=== PATIENT | male | born 1950 | race Caucasian/White ===

== ENCOUNTER 2017-08-19 09:59 | Observation (INO) ==
--- NOTE | 2017-08-19 10:22 | PROVIDER DOCUMENTATION ---
HPI-Psychological Disorder - General Chief Complaint: Suicide Attempt Stated Complaint: OVERDOSE Time Seen by Provider: 08/19/17 10:00 Source: patient Allergies/Adverse Reactions: Patient Allergies Allergy/AdvReac Type Severity Reaction Status Date / Time codeine [Codeine] AdvReac Mild "it makes Verified 05/05/17 13:56 me sleepy" Home Medications: Home Medication List Medication Instructions Recorded Confirmed Last Taken Type Clopidogrel [Plavix] 75 mg PO DAILY 07/23/14 08/19/17 05/04/17 History Omeprazole [Prilosec] 20 mg PO DAILY 07/23/14 05/05/17 05/04/17 History Aspirin 81 mg PO DAILY 12/30/14 05/05/17 05/04/17 History Hydrocodone/Acetaminophen [[place] 1 tab PO Q4-6H PRN PRN 12/30/14 05/05/17 History 7.5-325 Tablet] Nitroglycerin [Nitrostat] 0.6 mg SL PRN PRN 08/28/15 05/05/17 05/04/17 History Atorvastatin Calcium 80 mg PO DAILY 03/20/17 08/19/17 05/04/17 History Blood Sugar Diagnostic [Test 1 each MC BID 03/20/17 05/05/17 05/04/17 History Strips] Ergocalciferol (Vitamin D2) 50,000 unit PO DAILY 03/20/17 05/05/17 05/04/17 History [Vitamin D2] Glipizide 5 mg PO DAILY 03/20/17 08/19/17 05/04/17 History Meloxicam [Mobic] 15 mg PO DAILY 03/20/17 05/05/17 05/04/17 History Tamsulosin [Flomax] 1 cap PO DAILY 03/20/17 08/19/17 05/04/17 History Gabapentin 600 mg PO TID PRN PRN 08/19/17 08/19/17 08/19/17 History Trazodone [Desyrel] 50 mg PO QHS 08/19/17 08/19/17 Unknown History - History of Present Illness-Psych Nature of Presenting Problem: This pt presents today c complaints of suicidal attempt by overdose. Pt reports that he and his fought over money all night last night and told him that she was leaving this morning. He states that he just wants to go be c his parents (who are ) and took an unknown amount of Neurontin this morning. EMS reports that the prescription was filled in June but pt states he has not been taking them consistently and had "a lot left." Pt is currently laying in bed in no distress. No other issues or complaints. Onset/Duration: reports: this morning Timing: reports: still present Severity: reports: severe Situational problems related to:: reports: spouse Psychiatric Complaints: reports: depressed, frustrated, suicidal ideation Substance Use: reports: denies Previous psych related hospitalizations?: No Patient arrived by:: EMS called by spouse/family Similar Symptoms Previously?: No Recently seen or treated by another doctor?: No Review of Systems - Adult - REVIEW OF SYSTEMS - ADULT Constitutional: reports: no symptoms reported. denies: chills, fever Eyes: reports: no symptoms reported. denies: discharge, dry eyes Ears, Nose, Mouth & Throat: reports: no symptoms reported. denies: ear discharge, ear pain Cardiovascular: reports: no symptoms reported. denies: chest pain, edema Respiratory: reports: no symptoms reported. denies: chronic cough, cough Gastrointestinal: reports: no symptoms reported. denies: abdominal pain, hematemesis Genitourinary: reports: no symptoms reported. denies: dysuria, discharge Musculoskeletal: reports: no symptoms reported. denies: bone pain, back pain Integumentary: reports: no symptoms reported. denies: hives, hair loss Neurological: reports: no symptoms reported. denies: ataxia, dizziness/vertigo Psychiatric: reports: suicidal thoughts. denies: insomnia, panic attacks Endocrine: reports: no symptoms reported Hematologic/Lymphatic: reports: no symptoms reported Allergic/Immunologic: reports: no symptoms reported All Other Systems: Reviewed and Negative Past History - Adult - PAST MEDICAL HISTORY-ADULT Review of Records: reports: Old Records Reviewed, Nursing Assessment Review, Medications Reviewed, Social history reviewed & non-contributory. Major Childhood Illnesses: reports: denies history Cardiovascular: reports: CAD, HTN Respiratory: reports: denies history Gastrointestinal: reports: GERD Obstetrical/Gynecological: reports: denies history Genitourinary: reports: denies history Musculoskeletal: reports: denies history Neurological: reports: dementia, other (learning disability) Endocrine/Immune: reports: Diabetes Other Conditions: reports: denies history - PRIOR SURGERIES/PROCEDURES Surgical/Procedure History: reports: appendectomy, cholecystectomy, cardiac stent, tonsillectomy - IMMUNIZATION STATUS Childhood Immunizations: See Nurse Assessment Flu Vaccine: See Nurse Assessment - FAMILY HISTORY Family History: reviewed, not pertinent Physical Exam-Psych Focus - Physical Exam-Psych Initial Vital Signs Reviewed: Yes Appearance: appropriate appearance, appropriate insight, neat, no apparent distress, no memory impairment, alert. 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 negative: responds to pain, agitated, anxious, disoriented x 3, flat, no response to pain, withdraws to pain Behavior/Eye Contact/Speech: cooperative, good eye contact, normal speech. negative: avoids eye contact, refused to answer, threatening eye contact Thoughts/Hallucinations: normal thought pattern, no apparent hallucination. negative: auditory hallucinations, delusions, flight of ideas HENMT: normocephalic/atraumatic, moist mucous membranes, normal ENT inspection Neck: non-tender, full range of motion, supple, normal inspection Respiratory: chest non-tender, lungs clear, normal breath sounds Cardiovascular: normal peripheral pulses, regular rate, rhythm Abdominal Exam: normal bowel sounds, non tender, soft Back Exam: normal inspection, no CVA tenderness, no vertebral tenderness Extremity: normal range of motion, non-tender, normal gait, normal inspection Integumentary: normal color, normal turgor, warm/dry Progress - PLAN OF CARE/RESULTS Progress/Plan/Lab Results: Vital Signs - 8 hr 08/19/17 10:11 08/19/17 13:10 Temperature 97 F L Pulse Rate 62 57 L Respiratory Rate 22 18 Blood Pressure 194/106 127/82 O2 Sat by Pulse Oximetry 97 96 Laboratory Results - last 24 hr 08/19/17 08/19/17 08/19/17 10:28 10:28 10:28 WBC 7.10 RBC 5.36 Hgb 16.3 Hct 46.7 MCV 87.1 MCH 30.4 MCHC 34.9 RDW Std Deviation 13.4 Plt Count 179 MPV 10.9 H Immature Gran % (Auto) 0.3 Neut % (Auto) 60.8 Lymph % (Auto) 25.1 [place]he % (Auto) 10.1 H Eos % (Auto) 3.4 Baso % (Auto) 0.3 Immature Gran # (Auto) 0.02 Neut # (Auto) 4.32 Lymph # (Auto) 1.78 [place]he # (Auto) 0.72 H Eos # (Auto) 0.24 Baso # (Auto) 0.02 Sodium 139 Potassium 4.2 Chloride 104 Carbon Dioxide 21 L Anion Gap 14 BUN 16 Creatinine 1.2 Estimated GFR/1.73 m2 > 60 BUN/Creatinine Ratio 13 Glucose 123 H POC Glucose Calculated Osmolality 280 Calcium 9.4 Total Bilirubin 0.93 AST 33 ALT 41 Alkaline Phosphatase 151 H Total Protein 6.9 Albumin 4.0 Globulin 2.9 Albumin/Globulin Ratio 1.4 Vitamin B12 TSH Free T4 Urine Source Urine Color Urine Turbidity Urine pH Ur Specific Golden Urine Protein Ur Glucose (Stick) Ur Ketones (Stick) Urine Blood Urine Nitrite Urine Bilirubin Urobilinogen Dipstick Urine Leukocytes Urine WBC (Auto) Urine RBC (Auto) U Epithel Cells (Auto) Urine Bacteria (Auto) Salicylates < 3.00 L Urine Opiates Screen Ur Oxycodone Screen Ur Methadone, Qual Acetaminophen < 1.2 L Ur Barbiturates Screen Ur Phencyclidine Scrn Ur Amphetamines Screen U Benzodiazepines Scrn Urine Cocaine Screen U Cannabinoids Screen Plasma/Serum Ethyl Alc 08/19/17 08/19/17 08/19/17 10:28 10:38 11:31 WBC RBC Hgb Hct MCV MCH MCHC RDW Std Deviation Plt Count MPV Immature Gran % (Auto) Neut % (Auto) Lymph % (Auto) [place] % (Auto) Eos % (Auto) Baso % (Auto) Immature Gran # (Auto) Neut # (Auto) Lymph # (Auto) [place]he # (Auto) Eos # (Auto) Baso # (Auto) Sodium Potassium Chloride Carbon Dioxide Anion Gap BUN Creatinine Estimated GFR/1.73 m2 BUN/Creatinine Ratio Glucose POC Glucose 109 H Calculated Osmolality Calcium Total Bilirubin AST ALT Alkaline Phosphatase Total Protein Albumin Globulin Albumin/Globulin Ratio Vitamin B12 260 TSH 1.23 Free T4 1.10 Urine Source CLEAN CATCH Urine Color YELLOW Urine Turbidity CLEAR Urine pH 5.0 Ur Specific Golden 1.017 Urine Protein NEGATIVE Ur Glucose (Stick) NEGATIVE Ur Ketones (Stick) NEGATIVE Urine Blood NEGATIVE Urine Nitrite NEGATIVE Urine Bilirubin NEGATIVE Urobilinogen Dipstick NORMAL Urine Leukocytes NEGATIVE Urine WBC (Auto) <10 Urine RBC (Auto) <10 U Epithel Cells (Auto) <10 Urine Bacteria (Auto) NEGATIVE Salicylates Urine Opiates Screen Ur Oxycodone Screen Ur Methadone, Qual Acetaminophen Ur Barbiturates Screen Ur Phencyclidine Scrn Ur Amphetamines Screen U Benzodiazepines Scrn Urine Cocaine Screen U Cannabinoids Screen Plasma/Serum Ethyl Alc 08/19/17 11:31 WBC RBC Hgb Hct MCV MCH MCHC RDW Std Deviation Plt Count MPV Immature Gran % (Auto) Neut % (Auto) Lymph % (Auto) [place]he % (Auto) Eos % (Auto) Baso % (Auto) Immature Gran # (Auto) Neut # (Auto) Lymph # (Auto) [place]he # (Auto) Eos # (Auto) Baso # (Auto) Sodium Potassium Chloride Carbon Dioxide Anion Gap BUN Creatinine Estimated GFR/1.73 m2 BUN/Creatinine Ratio Glucose POC Glucose Calculated Osmolality Calcium Total Bilirubin AST ALT Alkaline Phosphatase Total Protein Albumin Globulin Albumin/Globulin Ratio Vitamin B12 TSH Free T4 Urine Source Urine Color Urine Turbidity Urine pH Ur Specific Golden Urine Protein Ur Glucose (Stick) Ur Ketones (Stick) Urine Blood Urine Nitrite Urine Bilirubin Urobilinogen Dipstick Urine Leukocytes Urine WBC (Auto) Urine RBC (Auto) U Epithel Cells (Auto) Urine Bacteria (Auto) Salicylates Urine Opiates Screen NONE DETECTED Ur Oxycodone Screen NONE DETECTED Ur Methadone, Qual NONE DETECTED Acetaminophen Ur Barbiturates Screen NONE DETECTED Ur Phencyclidine Scrn NONE DETECTED Ur Amphetamines Screen NONE DETECTED U Benzodiazepines Scrn NONE DETECTED Urine Cocaine Screen NONE DETECTED U Cannabinoids Screen NONE DETECTED Plasma/Serum Ethyl Alc Orders Category Date Time Status Cardiac Monitoring DIRECTED Care 08/19/17 10:00 Active Finger Stick Blood Sugar (ED) DIRECTED Care 08/19/17 10:00 Active Saline Loc DIRECTED Care 08/19/17 10:00 Active Regular Diet Diet 08/19/17 12:58 Active ACETAMINOPHEN [TDM] Stat Lab 08/19/17 10:28 Completed ALCOHOL BLOOD Stat Lab 08/19/17 10:28 Completed CBC WITH ELECTRONIC DIFF [HEME] Stat Lab 08/19/17 10:28 Completed COMPREHENSIVE METABOLIC PANEL [CHEM] Stat Lab 08/19/17 10:28 Completed FREE T4 Stat Lab 08/19/17 10:28 Completed SALICYLATES [TDM] Stat Lab 08/19/17 10:28 Completed TSH Stat Lab 08/19/17 10:28 Completed URINALYSIS W/POSS RFLX CULT-1 [URINALYSIS] Stat Lab 08/19/17 11:31 Completed URINE DRUG SCREEN Stat Lab 08/19/17 11:31 Completed VITAMIN B12 Stat Lab 08/19/17 10:28 Completed Pulse Oximetry Stat Oth 08/19/17 10:00 Active EKG [EKG] Stat Ther 08/19/17 10:00 Draft Discussed c poison control and they recommended lab work and monitoring for hypotension. Pt is stable and BP is actually elevated. Result Diagrams: 08/19/17 10:28 08/19/17 10:28 - PSYCHIATRIC Medically clear for psych eval and/or transfer to [facility].: Yes Psych patient progress: [facility] has screened pt. Dr. Martínez refuses to accept until pt has been monitored for 24 hours. Departure - Departure Date of Disposition Decision: 08/19/17 Time of Disposition Decision: 15:27 DIAGNOSIS: Suicidal overdose Qualifiers: Encounter type: initial encounter Qualified Code(s): T50.902A - Poisoning by unspecified drugs, medicaments and biological substances, intentional self-harm , initial encounter Disposition: ADMITTED INPATIENT 09 Certified Medical Emergency: Emergent Condition: Stable Referrals and Follow-Ups: Joseph Claudio MD [Primary Care Provider] - - Critical Care Note This patient required my direct & personal management of CC.: No Attestation - Physician/ DEBBIE Attestation Patient care was provided by Advanced Practice Provider:: Yes Advanced Practice Provider:: Oscar Georges Advanced Practice Provider documentation review:: The Mid-level provider documentation, treatment plan and medical decision making was reviewed by the physician who agrees with all treatment and medical decision making by the [facility]. The physician spent face to face time with patient:: Yes Advanced Practice Provider documentation review:: Supervising physician onsite and consulted in the evaluation and care of this patient. The physician did have a face to face encounter with the patient.
[2017-08-19 10:40] LABS: MANUAL DIFF NEEDED? NO
[2017-08-19 10:48] LABS: BASO% 0.3 % (0.0-0.8); EOS# 0.24 X1000 (0.0-0.7); EOS% 3.4 % (0.0-10.0); HEMATOCRIT 46.7 % (42.0-52.0); HEMOGLOBIN 16.3 g/dL (14.0-18.0); IMM GRAN# 0.02 X1000 (0.0-0.04); IMM GRAN% 0.3 % (0.0-0.5); LYMPH# 1.78 X1000 (1.2-3.4); LYMPH% 25.1 % (20.5-51.1); MCH 30.4 PG (27-31); MCHC 34.9 g/dL (33-37); MCV 87.1 FL (81-99); MONO# 0.72 X1000 (0.11-0.59); MONO% 10.1 % (1.7-9.3); MPV 10.9 FL (7.4-10.4); NEUT% 60.8 % (42.2-75.2); PLT 179 X1000 (130-400); RBC 5.36 XMIL (4.7-6.1)
[2017-08-19 11:19] LABS: ACETAMINOPHEN < 1.2 ug/mL (10-30); ALKALINE PHOSPHATASE 151 U/L (32-122); BUN 16 mg/dL (8-22); CALCIUM 9.4 mg/dL (8.8-10.2); GOT 33 U/L (10-34); GPT 41 U/L (10-44); TCO2 21 mmol/L (25-35); TOTAL BILIRUBIN 0.93 mg/dL (0.20-1.00); TOTAL PROTEIN 6.9 g/dL (6.3-8.3)
[2017-08-19 11:25] LABS: CHLORIDE 104 mmol/L (98-107); POTASSIUM 4.2 mmol/L (3.5-5.1); SODIUM 139 mmol/L (136-145)
[2017-08-19 11:42] LABS: URINE CULTURE NEEDED? NO; URINE MICRO REVIEW NEEDED? NO; URINE SOURCE CLEAN CATCH
[2017-08-19 11:42] LABS: AGAP 14; COSMO 280
[2017-08-19 11:47] LABS: BILIRUBIN URINE NEGATIVE (NEGATIVE); BLOOD URINE NEGATIVE (NEGATIVE); COLOR YELLOW; GLUCOSE URINE NEGATIVE (NEGATIVE); LEUKOCYTES URINE NEGATIVE (NEGATIVE); NITRITE URINE NEGATIVE (NEGATIVE); PROTEIN URINE NEGATIVE (NEGATIVE); SP GRAVITY URINE 1.017; TURBIDITY URINE CLEAR (CLEAR); UR EPITHELIAL CELLS <10 /HPF (<10); URINE BACTERIA NEGATIVE /HPF; URINE RBC <10 /HPF (<10); URINE WBC <10 /HPF (<10); UROBILINOGEN URINE NORMAL (NORMAL)
[2017-08-19 12:01] LABS: UR AMPHETAMINES QUAL NONE DETECTED (NONE DETECT); UR BARBITUATES QUAL NONE DETECTED (NONE DETECT); UR BENZODIAZEPIN QUAL NONE DETECTED (NONE DETECT); UR CANNABINOIDS QUAL NONE DETECTED (NONE DETECT); UR COCAINE QUAL NONE DETECTED (NONE DETECT); UR METHADONE QUAL NONE DETECTED (NONE DETECT); UR OPIATES QUAL NONE DETECTED (NONE DETECT); UR OXYCODONE QUAL NONE DETECTED (NONE DETECT); UR PCP QUAL NONE DETECTED (NONE DETECT)
[2017-08-19 12:06] LABS: FREE T4 1.1 ng/dL (0.93-1.70)
--- NOTE | 2017-08-19 12:08 | EKG Report ---
Test Performed on : 08/19/2017 11:05:02 AM Test Reason : Suspected Overdose Blood Pressure : / mmHG Vent. Rate : 058 BPM Atrial Rate : 058 BPM P-R Int : 152 ms QRS Dur : 092 ms QT Int : 436 ms P-R-T Axes : 028 019 048 degrees QTc Int : 428 ms Sinus bradycardia. Otherwise normal ECG When compared with ECG of 20-MAR-2017 18:39, No significant change was found Unconfirmed Result
[2017-08-19] MEDS: NS 1,000 ML IV SCH (19:34)
[2017-08-19] MEDS: HUMALOG SUBQ SCH ×2 (19:37→20:49)
--- NOTE | 2017-08-19 19:59 | HISTORY AND PHYSICAL ---
PRIMARY CARE PHYSICIAN: Dr. Joseph Claudio. PRESENTING COMPLAINT: Suicidal attempt with injection of Neurontin. HISTORY OF PRESENTING COMPLAINT: The patient himself is not able to give me details of the incident. The daughter was at the bedside who gave me more, but she was actually not there at the time of the incident and she is also narrating from what she heard. Also I reviewed the patient's records from the ER and apparently he had an incident with the the last night and the locked him out and he was at the living room. According to him, he got so depressed he did not want to live anymore so he went in to where the medications are and took an unknown amount of Neurontin. This morning the sister found him altered at home. The was not there. The patient was subsequently brought to the emergency department where Poison Control was consulted and their recommendation was to observe the patient for 5 hours and discharge if stable. However, [facility] was consulted because of acute suicidal ideation and intent, but they refused to admit the patient. They recommended that the patient be observed medically for 24 hours before they would evaluate him. PAST MEDICAL HISTORY: 1. Coronary artery disease status post stent about 10 years ago. 2. Borderline diabetes mellitus. 3. Hypertension. 4. Multiple musculoskeletal pains status post multiple cervical spine surgeries. PAST SURGICAL HISTORY: Multiple spine surgeries. FAMILY HISTORY: Positive for diabetes. SOCIAL HISTORY: Patient was an ex smoker but stopped about 20 years ago. No alcohol. Lives with the who is about 86 years old for the past 7 years. According to him, the is deaf and he has to be screaming at the top of his voice all the time to be communicating with her. Denies any illicit drugs and no alcohol. The patient is disables because of lower back spinal disease. MEDICATIONS AT HOME: 1. Omeprazole 20 mg daily. 2. Clopidogrel 75 mg daily. 3. Aspirin 81 mg daily. 4. Glipizide 5 mg daily. 5. Atorvastatin 80 mg daily. 6. Meloxicam. 7. Tamsulosin 1 tablet daily. 8. Gabapentin 600, 3 times per day. PHYSICAL EXAM: VITAL SIGNS: Blood pressure is 132/84, pulse of 62, respirations 18, temperature is 97 degrees. GENERAL: Mr. Camarillo is a 67-year-old male. He is morbidly obese. BMI is 33.5. He is in bed. Did not seem to be in any remarkable distress. HEENT: Mucosa is slightly dry. Anicteric. Acyanotic. Head is normocephalic and atraumatic. NECK: Supple. There are multiple scars on the right aspect of the lower neck consistent with previous neck surgeries. CHEST: Good air entry bilateral. There are no crepitations, no rhonchi. There is no accessory muscle use. CARDIOVASCULAR: Regular rate and rhythm. There is no murmurs no rubs, no gallops. GASTROINTESTINAL: Abdomen is soft and nontender. Bowel sounds are present. There is no hepatosplenomegaly. : Unremarkable. FARMWORKERS: Patient is slightly lethargic, but is easily arousable. Follows some basic commands. Speech is slightly dysarthric, but patient moves all extremities without any difficulty. Motor is about 5/5 in all extremities. No sensory deficit. Reflexes are 2+ in all extremities. PSYCHIATRIC: Patient is easily tearful. LABORATORY DATA: WBC 7.10, hemoglobin is 16.3, platelet count of 179,000. Chemistry is also reviewed. Bicarb is 21, rest of chemistries are completely unremarkable. EKG shows normal sinus rhythm. Normal axis. No acute ST-segment abnormality and QT interval is normal. ASSESSMENT: 1. Altered mental status on presentation, secondary to medication prescription drug side effects. 2. Suicidal attempt with injection of unknown amount of Neurontin, not quite sure if patient might have taken any other additional drugs. 3. Diabetes mellitus, stable. 4. Obesity with possible sleep apnea. PLAN: In general, I think Mr. Camarillo is clinically stable. We are going to keep him in the ICU, continue with gentle baseline hydration to perfuse the kidney and try to flush the medication out of the system. Will do neuro checks every 4-6 hours. Reconsult [facility] tomorrow after the 24 hours observation is over so that we can transfer the patient to [facility]. cc: MD ROSIBEL Chan
[2017-08-20 04:37] LABS: HEMATOCRIT 45.9 % (42.0-52.0); HEMOGLOBIN 15.7 g/dL (14.0-18.0); MCH 30.3 PG (27-31); MCHC 34.2 g/dL (33-37); MCV 88.6 FL (81-99); MPV 11.2 FL (7.4-10.4); RBC 5.18 XMIL (4.7-6.1)
[2017-08-20 05:09] LABS: AGAP 11; BUN 17 mg/dL (8-22); CALCIUM 9.2 mg/dL (8.8-10.2); CHLORIDE 107 mmol/L (98-107); COSMO 287; POTASSIUM 4.2 mmol/L (3.5-5.1); SODIUM 143 mmol/L (136-145); TCO2 25 mmol/L (25-35)
[2017-08-20] MEDS: HUMALOG SUBQ SCH ×2 (06:04→11:31)
[2017-08-20] MEDS ORDERED: FOLIC ACID PO SCH (09:00)
[2017-08-20] MEDS ORDERED: LOVENOX SUBQ SCH (09:00)
[2017-08-20] MEDS: NS 1,000 ML IV SCH (09:04)
[2017-08-20] MEDS ORDERED: VITAMIN B-12 PO SCH (09:45)
[2017-08-20 11:34] VITALS: BP 165/102
--- NOTE | 2017-08-21 09:22 | DISCHARGE SUMMARY ---
ADMISSION DATE: 08/19/2017 DISCHARGE DATE: 08/20/2017 DISPOSITION: [facility] and inpatient psych unit. CONSULTATION DURING THIS ADMISSION: [facility] was consulted. INVASIVE PROCEDURES DONE DURING THIS ADMISSION: None. IMAGING STUDIES OF SIGNIFICANCE: None. Admission EKG was reviewed and it showed normal sinus rhythm with a rate of about 58 which has not changed. ADMISSION DIAGNOSES: 1. Altered mental status secondary to prescription drug side effects. 2. Suicidal attempt with injection of unknown amount of Neurontin. 3. Diabetes mellitus. 4. Obesity with possible sleep apnea. DISCHARGE DIAGNOSES: 1. Altered mental status secondary to global encephalopathy, improved. 2. Suicidal attempt with ingestion of Neurontin. Patient continues to expressed ideas and thoughts of suicidality. 3. Suspected severe major depression. 4. Diabetes mellitus, controlled. 5. Obesity with body mass index of 34.3. 6. Borderline vitamin B12 deficiency. 7. Folate deficiencies. DISCHARGE MEDICATIONS: 1. Omeprazole 20 mg daily. 2. Clopidogrel 75 mg daily. 3. Aspirin 81 mg daily. 4. Glipizide 5 mg daily. 5. Atorvastatin 80 mg daily. 6. Tamsulosin 1 tablets. 7. Trazodone 50 mg at bedtime. 8. Gabapentin. 9. Cyanocobalamin 1 g p.o. daily. 10. Folic acid 1 mg p.o. daily. PRESENTING COMPLAINT: Suicidal attempt with ingestion of Neurontin. HISTORY OF PRESENTING COMPLAINT: Mr. Camarillo is a 67-year-old male who presented to the emergency department because he had some issues with the at home and subsequently became so depressed that he ingested an unknown amount of Neurontin. Patient came in to the emergency department very altered and was not able to give history himself. Poison Control was consulted and their recommendation was to observe the patient for 5 hours and discharge. However [facility] was consulted and they wanted the patient to be observed for 24 hours to make sure he was medically stable for discharge. The patient was subsequently admitted to the ICU for close monitoring. HOSPITAL COURSE: Patient did pretty well during the hospital stay, was hydrated with IV fluids. B12 and folate were low, so he has been started on oral supplements. He will continue with his medications. This morning, he continues to be extremely suicidal. He thinks some the does not care about him and he just wants to go home and end his life. [facility] have been called. They have been notified about the patient's continued ideas of suicidality and the fact that medically, he is stable. Telemonitor has not shown any acute changes compatible with some any other arrhythmias or any ST-segment changes or anything of major concern. The patient is therefore medically stable and he is going to be transferred to [facility] to continue with his mental health management. TIME SPENT FOR DISCHARGE: Thirty-five minutes. cc: Juice Powell MD
--- NOTE | 2017-08-28 14:13 | ED EKG INTERP ---
This chart was entered by Eun Rucker Scribe, acting as scribe for Levi De La Paz MD. EKG Interpretation - EKG Time of EKG reading by physician:: 11:31 EKG Read and Signed by:: Levi De La Paz EKG Interpretation (*Must complete 3 of following elements*): Normal Rate: 58 Rhythm: sinus bradycardia [place]: normal QRS: normal IN Interval: normal ST Wave: normal Attestation - Physician/ DEBBIE Attestation Patient care was provided by Advanced Practice Provider:: Yes Advanced Practice Provider documentation review:: The Mid-level provider documentation, treatment plan and medical decision making was reviewed by the physician who agrees with all treatment and medical decision making by the MLP. The physician spent face to face time with patient:: No Advanced Practice Provider documentation review:: Supervising physician onsite and consulted in the evaluation and care of this patient. The physician did not have a face to face encounter with the patient. This chart was documented by the indicated scribe, (Eun Rucker Scribe) and accurately reflects the services I performed and decisions made by me, Levi De La Paz MD, as attested by the provider's signature.
== END 2017-08-20 16:25 ==
LOC: SUPCPDRO → ED 09:59 → SUATTDRO 16:48 → INTOOBSV 16:48 → ICU 16:48
PROVIDERS: ATTEND Internal Medicine

== ENCOUNTER 2019-04-15 16:32 | Inpatient (IN) ==
[2019-04-15 17:33] LABS: BASO# 0.01 X1000 (0.0-0.2); BASO% 0.1 % (0.0-0.8); EOS# 0.01 X1000 (0.0-0.7); EOS% 0.1 % (0.0-10.0); HEMATOCRIT 47.1 % (42.0-52.0); HEMOGLOBIN 16.4 g/dL (14.0-18.0); IMM GRAN# 0.04 X1000 (0.0-0.04); IMM GRAN% 0.5 % (0.0-0.5); LYMPH# 0.89 X1000 (1.2-3.4); LYMPH% 11.2 % (20.5-51.1); MCH 31.4 PG (27-31); MCHC 34.8 g/dL (33-37); MCV 90.2 FL (81-99); MONO# 0.73 X1000 (0.11-0.59); MONO% 9.1 % (1.7-9.3); MPV 11.5 FL (7.4-10.4); PLT 137 X1000 (130-400); RBC 5.22 XMIL (4.7-6.1); RDW 13.5 % (11.5-14.5); WBC 7.98 X1000 (4.8-10.8)
--- NOTE | 2019-04-15 17:33 | Diag Imaging Result Doc PS360 ---
CT HEAD W/O CONTRAST - 04/15/2019 INDICATION: stroke like COMPARISON: 09/09/2018 FINDINGS: The ventricles and sulci are normal in size and contour. No intracranial mass or hemorrhage. The skull is intact. The sinuses mastoids and middle ears are clear. IMPRESSION: Negative exam. This exam was performed using automated exposure control, adjustment of mA or kV according to patient size, and/or use of iterative reconstruction technique Electronically signed by Demetri Lee 04/15/2019 5:31 PM
--- NOTE | 2019-04-15 17:34 | Diag Imaging Result Doc PS360 ---
CHEST-PORTABLE - 04/15/2019 INDICATION: stroke like symptoms COMPARISON: 09/09/2018 FINDINGS: The lungs are normally expanded and clear. Heart size and mediastinal contours are normal. No pneumothorax or pleural effusion. IMPRESSION: Negative exam. Electronically signed by Demetri Lee 04/15/2019 5:31 PM
[2019-04-15 17:38] LABS: INR 0.98; PROTIME 13.8 Seconds (11.0-16.0)
[2019-04-15 17:39] LABS: PTT 26.9 Seconds (22.3-41.8)
[2019-04-15 17:50] LABS: ALB/GLOB RATIO 1.5; ALBUMIN 3.7 g/dL (3.5-5.0); CALCIUM 8.6 mg/dL (8.8-10.2); CREATININE 1.4 mg/dL (0.7-1.2); POTASSIUM 4.4 mmol/L (3.5-5.1); TOTAL BILIRUBIN 0.85 mg/dL (0.20-1.00); TOTAL PROTEIN 6.1 g/dL (6.3-8.3)
[2019-04-15 19:44] LABS: URINE SOURCE CATH
[2019-04-15 19:45] LABS: BILIRUBIN URINE NEGATIVE (NEGATIVE); BLOOD URINE NEGATIVE (NEGATIVE); COLOR YELLOW; GLUCOSE URINE NEGATIVE (NEGATIVE); KETONE URINE NEGATIVE (NEGATIVE); LEUKOCYTES URINE NEGATIVE (NEGATIVE); NITRITE URINE NEGATIVE (NEGATIVE); PROTEIN URINE NEGATIVE (NEGATIVE); TURBIDITY URINE CLEAR (CLEAR); UROBILINOGEN URINE NORMAL (NORMAL)
[2019-04-15 19:46] LABS: UR EPITHELIAL CELLS <10 /HPF (<10); URINE BACTERIA NEGATIVE /HPF; URINE RBC <10 /HPF (<10); URINE WBC <10 /HPF (<10)
--- NOTE | 2019-04-15 21:04 | PROVIDER DOCUMENTATION ---
This chart was entered by Hailey Tariq Scribe, acting as scribe for Satnam Robert MD. HPI-Neurological Disorder - General Chief Complaint: Stroke-Like Symptoms Stated Complaint: FALL Time Seen by Provider: 04/15/19 16:40 Source: patient, EMS Allergies/Adverse Reactions: Patient Allergies Allergy/AdvReac Type Severity Reaction Status Date / Time codeine [Codeine] AdvReac Mild "it makes Verified 04/11/18 04:52 me sleepy" Home Medications: Home Medication List Medication Instructions Recorded Confirmed Last Taken Type Omeprazole [Prilosec] 40 mg PO QHS 07/23/14 04/15/19 05/04/17 History Aspirin 81 mg PO QPM 12/30/14 04/15/19 05/04/17 History Atorvastatin Calcium 80 mg PO QPM 03/20/17 04/15/19 05/04/17 History Blood Sugar Diagnostic [Test 1 each MC BID 03/20/17 04/15/19 05/04/17 History Strips] Glipizide 5 mg PO QHS 03/20/17 04/15/19 05/04/17 History Tamsulosin [Flomax] 1 cap PO QHS 03/20/17 04/15/19 05/04/17 History Gabapentin [Neurontin] 600 mg PO TID PRN PRN #0 tablet 09/03/17 04/15/19 Unknown Rx Acetaminophen [Tylenol 8 Hour] 1 tab PO TID PRN 04/15/19 04/15/19 Unknown History Amlodipine Besylate [Norvasc] 2.5 mg PO QHS 04/15/19 04/15/19 Unknown History Fluticasone 50 Mcg Nasal [place] 2 sprays NS QHS 04/15/19 04/15/19 Unknown History [Flonase] - History of Present Illness-Neuro Nature of Presenting Problem: 69 yom presents to the ed via ems with c/o left sided weakness and frequent falls acute onset 2 days prior. pt sts weakness has worsened since onset and pt has fallen multiple times. the last fall was today at a neighbors home and neighbor called 911. pt denies headache Severity: reports: moderate Onset/Duration: reports: 2 days ago Timing: reports: still present Context: reports: falling Character of Altered Mental Status: reports: N/A Character of Deficits: reports: new weakness, decreased ability to walk New weakness or altered sensation location:: reports: MONSEE, YELITZA Cognitive Baseline: alert, oriented x3 Gait Baseline: walks without assistance Associated Symptoms: reports: decreased ability to walk or stand, weakness. denies: headache, chest pain, fever/chills, nausea, sleepy, vomiting Similar Symptoms Previously?: No Recently seen or treated by another doctor?: No Review of Systems - Adult - REVIEW OF SYSTEMS - ADULT Constitutional: reports: no symptoms reported Eyes: denies: blurred vision, double vision Ears, Nose, Mouth & Throat: reports: no symptoms reported Cardiovascular: denies: chest pain, palpitations, syncope Respiratory: denies: cough, shortness of breath, wheezing Gastrointestinal: reports: no symptoms reported Genitourinary: reports: no symptoms reported Musculoskeletal: reports: see HPI, muscle weakness. denies: back pain, neck pain Integumentary: reports: no symptoms reported Neurological: reports: see HPI, loss of balance. denies: ataxia, dizziness/vertigo, headache/migraines, seizure, slurred speech, syncope Psychiatric: reports: no symptoms reported Endocrine: reports: no symptoms reported Hematologic/Lymphatic: reports: no symptoms reported Allergic/Immunologic: reports: no symptoms reported All Other Systems: Reviewed and Negative Past History - Adult - PAST MEDICAL HISTORY-ADULT Review of Records: reports: Old Records Reviewed, Nursing Assessment Review, Medications Reviewed, Social history reviewed & non-contributory. Major Childhood Illnesses: reports: denies history Cardiovascular: reports: CAD, HTN Respiratory: reports: denies history Gastrointestinal: reports: GERD Obstetrical/Gynecological: reports: denies history Genitourinary: reports: denies history Musculoskeletal: reports: denies history Neurological: reports: dementia, other (learning disability) Psychiatric: reports: depression Endocrine/Immune: reports: Diabetes Other Conditions: reports: denies history - PRIOR SURGERIES/PROCEDURES Surgical/Procedure History: reports: appendectomy, cholecystectomy, cardiac stent, tonsillectomy, back/neck (lower back surgery) - IMMUNIZATION STATUS Childhood Immunizations: See Nurse Assessment Flu Vaccine: See Nurse Assessment - FAMILY HISTORY Family History: reviewed, not pertinent - SOCIAL HISTORY Smoking: quit greater than 1 year Substance Use: denies Alcohol Use Frequency: never Living Situation: family Physical Exam- Neurological - Physical Exam-Neuro General Appearance: alert, mild distress Eye Exam: bilateral eye: normal inspection HENMT: normocephalic/atraumatic, moist mucous membranes, normal ENT inspection Head Injury: no evidence of injury Neck: non-tender, full range of motion, supple Respiratory: lungs clear, normal breath sounds Cardiovascular: normal peripheral pulses, regular rate, rhythm, no edema Abdominal Exam: normal bowel sounds, non tender, soft Extremity: normal range of motion, non-tender, normal gait vice president safety Exam: normal hearing, abnormal speech (slurred), facial asymmetry. negative: normal speech Coordination/Gait: normal finger to nose. negative: normal gait Motor/Sensory: pronator drift (L), sensory deficit, weak motor strength LUE, weak motor strength LLE Neurologic: motor weakness Integumentary: normal color, normal turgor, warm/dry Psych/Mental Status: normal thought content, normal thought process - Glascow Coma Scale Best Eye Response: (4) open spontaneously Best Verbal Response: (5) oriented Best Motor Response: (6) obeys commands Progress - PLAN OF CARE/RESULTS Progress/Plan/Lab Results: Vital Signs - 8 hr 04/15/19 16:40 04/15/19 16:41 04/15/19 16:42 Temperature 98.8 F Pulse Rate 87 90 87 Respiratory Rate 17 20 Blood Pressure 140/88 140/88 O2 Sat by Pulse Oximetry 95 04/15/19 17:20 04/15/19 18:10 04/15/19 18:20 Temperature Pulse Rate 78 85 84 Respiratory Rate 20 13 20 Blood Pressure O2 Sat by Pulse Oximetry 95 96 96 Laboratory Results - last 24 hr 04/15/19 04/15/19 04/15/19 16:40 16:40 16:40 WBC 7.98 RBC 5.22 Hgb 16.4 Hct 47.1 MCV 90.2 MCH 31.4 H MCHC 34.8 RDW Std Deviation 13.5 Plt Count 137 MPV 11.5 H Immature Gran % (Auto) 0.5 Neut % (Auto) 79.0 H Lymph % (Auto) 11.2 L [place] % (Auto) 9.1 Eos % (Auto) 0.1 Baso % (Auto) 0.1 Immature Gran # (Auto) 0.04 Neut # (Auto) 6.30 Lymph # (Auto) 0.89 L [place] # (Auto) 0.73 H Eos # (Auto) 0.01 Baso # (Auto) 0.01 PT 13.8 INR 0.98 PTT (Actin FS) 26.9 Sodium 136 Potassium 4.4 Chloride 103 Carbon Dioxide 23 L Anion Gap 10 BUN 19 Creatinine 1.4 H Estimated GFR/1.73 m2 51 BUN/Creatinine Ratio 14 Glucose 152 H POC Glucose Calculated Osmolality 277 Calcium 8.6 L Total Bilirubin 0.85 AST 28 ALT 34 Alkaline Phosphatase 138 H Troponin T Total Protein 6.1 L Albumin 3.7 Globulin 2.4 Albumin/Globulin Ratio 1.5 Urine Source Urine Color Urine Turbidity Urine pH Ur Specific [place] Urine Protein Ur Glucose (Stick) Ur Ketones (Stick) Urine Blood Urine Nitrite Urine Bilirubin Urobilinogen Dipstick Urine Leukocytes Urine WBC (Auto) Urine RBC (Auto) U Epithel Cells (Auto) Urine Bacteria (Auto) 04/15/19 04/15/19 04/15/19 16:40 16:50 19:25 WBC RBC Hgb Hct MCV MCH MCHC RDW Std Deviation Plt Count MPV Immature Gran % (Auto) Neut % (Auto) Lymph % (Auto) [place] % (Auto) Eos % (Auto) Baso % (Auto) Immature Gran # (Auto) Neut # (Auto) Lymph # (Auto) [place] # (Auto) Eos # (Auto) Baso # (Auto) PT INR PTT (Actin FS) Sodium Potassium Chloride Carbon Dioxide Anion Gap BUN Creatinine Estimated GFR/1.73 m2 BUN/Creatinine Ratio Glucose POC Glucose 187 H D Calculated Osmolality Calcium Total Bilirubin AST ALT Alkaline Phosphatase Troponin T < 0.010 Total Protein Albumin Globulin Albumin/Globulin Ratio Urine Source CATH Urine Color YELLOW Urine Turbidity CLEAR Urine pH 5.0 Ur Specific [place] 1.020 Urine Protein NEGATIVE Ur Glucose (Stick) NEGATIVE Ur Ketones (Stick) NEGATIVE Urine Blood NEGATIVE Urine Nitrite NEGATIVE Urine Bilirubin NEGATIVE Urobilinogen Dipstick NORMAL Urine Leukocytes NEGATIVE Urine WBC (Auto) <10 Urine RBC (Auto) <10 U Epithel Cells (Auto) <10 Urine Bacteria (Auto) NEGATIVE Orders Category Date Time Status Cardiac Monitoring DIRECTED Care 04/15/19 16:52 Active Finger Stick Blood Sugar (ED) DIRECTED Care 04/15/19 16:52 Active Misc. NRSG Communication Order DIRECTED Care 04/15/19 16:52 Active Misc. NRSG Communication Order DIRECTED Care 04/15/19 21:00 Active Oxygen Therapy- ED Nursing DIRECTED Care 04/15/19 16:52 Active Saline Loc NOW Care 04/15/19 16:52 Active CHEST-PORTABLE [RAD] Stat Exams 04/15/19 16:[address] HEAD W/O CONTRAST [CT] Stat Exams 04/15/19 16:49 Completed CBC WITH ELECTRONIC DIFF [HEME] Stat Lab 04/15/19 16:40 Completed COMPREHENSIVE METABOLIC PANEL [CHEM] Stat Lab 04/15/19 16:40 Completed PROTIME WITH INR [COAG] Stat Lab 04/15/19 16:40 Completed PTT [COAG] Stat Lab 04/15/19 16:40 Completed TROPONIN T Stat Lab 04/15/19 16:40 Completed URINALYSIS W/POSS RFLX CULT [URINALYSIS] Stat Lab 04/15/19 19:25 Completed 0.9% Sodium Chloride Inj [Ns] 1,000 ml Med 04/15/19 20:30 Active IV 100 mls/hr Clopidogrel [Plavix] Med 04/16/19 09:00 Ordered 75 mg PO DAILY EKG [EKG] Stat Ther 04/15/19 16:52 Ordered Transfer/Admit Order [TRANSFER] Routine Transfer 04/15/19 20:19 Ordered No TPA given due to onset 2 days prior, symptoms and exam concerning for stroke. will admit for further management. Result Diagrams: 04/15/19 16:40 04/15/19 16:40 - REASSESSMENT Reassessment #1 Time Reassessed: 17:45 Status: unchanged - EKG 1 Time of EKG reading by physician:: 17:08 EKG Read and Signed by:: Satnam Robert EKG Interpretation (*Must complete 3 of following elements*): Normal Rate: 87 Rhythm: nsr [place]: normal QRS: normal LA Interval: normal ST Wave: normal - XRAY 1 XRAY: Bilateral XRAY Study: Chest Impression: See EMR Report (CHEST-PORTABLE - 04/15/2019 INDICATION: stroke like symptoms COMPARISON: 09/09/2018 FINDINGS: The lungs are normally expanded and clear. Heart size and mediastinal contours are normal. No pneumothorax or pleural effusion. IMPRESSION: Negative exam. Electronically signed by Demteri Lee 04/15/2019 5:31 PM 04/15/19 [id number] Interpreting Physician: Demetri Collier MD Dictated Date/Time: 04/15/19 1731 cc: Satnam Robert MD; Joseph Claudio MD) - CT/MRI 1 CT Study: Head Impression: See EMR Report (CT HEAD W/O CONTRAST - 04/15/2019 INDICATION: stroke like COMPARISON: 09/09/2018 FINDINGS: The ventricles and sulci are normal in size and contour. No intracranial mass or hemorrhage. The skull is intact. The sinuses mastoids and middle ears are clear. IMPRESSION: Negative exam. This exam was performed using automated exposure control, adjustment of mA or kV according to patient size, and/or use of iterative reconstruction technique Electronically signed by Demetri Lee 04/15/2019 5:31 PM 04/15/19 173 Interpreting Physician: Demetri Lee MD Dictated Date/Time: 04/15/19 1730 cc: Satnam Robert MD; Joseph Claudio MD) - CONSULTS/PCP/HOSPITALIST Notification #1 *Consult/PCP/Hospitalist*: CHIEF CONTRACT OFFICER Par[facility] admitting for Dr. Duran Time Discussed: 18:23 Consult Disposition: Admit (Hx, PE and pt care discussed, accepted.) Departure - Departure Date of Disposition Decision: 04/15/19 Time of Disposition Decision: 18:22 DIAGNOSIS: Stroke-like symptoms, Weakness of left side of body Disposition: ADMITTED INPATIENT 09 Certified Medical Emergency: Emergent Condition: Stable Referrals and Follow-Ups: Joseph Caludio MD [Primary Care Provider] - - Critical Care Note This patient required my direct & personal management of CC.: No Attestation - Physician/ DEBBIE Attestation Patient care was provided by Advanced Practice Provider:: No The physician spent face to face time with patient:: Yes Advanced Practice Provider documentation review:: Supervising physician onsite and consulted in the evaluation and care of this patient. The physician did have a face to face encounter with the patient. - NIH Stroke Scale Level of Consciousness: 0-Alert LOC Questions (ask month and age): 1-Answers One Correctly LOC Commands (ask to open & close eyes;make a fist, let go): 0-Obeys Both Correctly Best Gaze (horizontal eye movement): 0-Normal Visual (use finger movement, counting or visual threat): 0-No Visual Loss Facial Palsy (show teeth or raise eyebrows & close eyes tght: 1-Minor Paralysis Motor Function-left arm: 2-Some Effort Against [place] Motor Function-right arm: 0-Normal Motor Function-left le-Some Effort Against [place] Motor Function-right le-Normal Limb Ataxia([id number], or heel to landry): 0-No Ataxia Sensory(pin prick to face,arms,trunk,legs-compare side/side): 1-Mild to Moderate Decrease in Sensation Best Language(name item/read sentence.Ex-Down to Earth): 0-No Aphasia Dysarthria(Pt read words or say words Ex.Mama,Tip-Top,Thanks: 1-Mild-Mod Slurring Words NIH Total Score: 7 This chart was documented by the indicated scribe, (Hailey Tariq, Akankshae) and accurately reflects the services I performed and decisions made by me, Satnam Mendoza MD, as attested by the provider's signature.
[2019-04-15] MEDS ORDERED: PLAVIX PO ONE (21:08)
[2019-04-15] MEDS ORDERED: LOVENOX 1 MG/KG SUBQ SCH (21:15)
[2019-04-15] MEDS ORDERED: LOVENOX SUBQ ONE (21:15)
[2019-04-15] MEDS: NS 1,000 ML IV SCH (21:27)
[2019-04-15] MEDS: ASPIRIN EC PO SCH (21:27)
[2019-04-15] MEDS ORDERED: TYLENOL ARTHRITIS PO PRN (22:23)
[2019-04-15] MEDS: TYLENOL PO PRN (22:39)
[2019-04-15] MEDS: LIPITOR PO SCH (22:46)
[2019-04-15] MEDS: GLUCOTROL PO SCH (22:46)
[2019-04-15] MEDS: FLOMAX PO SCH (22:46)
[2019-04-15] MEDS: PRILOSEC PO SCH (22:46)
--- NOTE | 2019-04-16 01:47 | HISTORY AND PHYSICAL ---
ADDENDUM: This is a face to face encounter with IRINA García. HISTORY: A 69-year-old gentleman, he presents with weakness and unable to ambulate, mostly on his left side, upper and lower, started yesterday. His brother is noted though he has just kind of had frequent falls and weakness now for several months, and trouble swallowing. His brother saw him yesterday, he was in his usual condition, and yesterday evening, I think, the episode occurred. He had to drag himself to his neighbor's house because he left his phone in his car, unable to ambulate. On exam, he does have some weakness in his left upper extremity but it is still about 4/5. It is 3/5 in his left lower extremity. I could not elicit great reflexes in his lower extremities. His upper extremity, especially on the left side, was 3+, probably 2+ on the right side. No clonus. I could appreciate, there was slight pronator drift, but there was no facial asymmetry, but he did have rhythmic smacking of his lips. There is kind of a persistent rhythmic smacking, which his family says that is new for the last 2 to 3 months. He has some intermittent kind of shuffling gait, but it is not consistent. There is no Parkinson's in the family. PROBLEM LIST: Stroke or rule out stroke. MRI will have to be in a couple days because it is not available over the weekend. We will do other testing, carotid echo, get a PT, OT, speech therapy consults, because he does report dysphagia. We will initiate aspirin, Plavix, check lipids and follow closely. I do think a neurology consult would be of benefit because I am not sure for dealing with some sort of tardive dyskinesia or early parkinsonism independent of his other issues. He is not really on any medications that should give him dyskinesia, but it is a very odd issue. We will continue to follow closely. cc: Ar Duran MD
--- NOTE | 2019-04-16 02:02 | HISTORY AND PHYSICAL ---
CONSULTING PHYSICIAN: Dr. Ar Duran. PRIMARY CARE PHYSICIAN: Dr. Joseph Claudio. CHIEF COMPLAINT: Dizziness, blurry vision, and falling x1 day. HISTORY OF PRESENT ILLNESS: This is a 69-year-old male with complaints of dizziness, blurred vision, and balance issues where he has fallen multiple times at home x1 day. The patient is oriented and able to follow all commands. The patient's brother was at bedside, was able to give us a little bit of history also on the patient. There is an abrasion on the left knee region where patient has fallen and hit his knee. Patient denies any pain in that left knee. Pupils are equal, round, reactive to light and accommodation. There is no deficits noted in the pupil region. No facial droop noted. There is weakness noted to the left arm, shoulder, and leg. Patient stated that all these symptoms started yesterday afternoon. He also has complaints of feeling tired all the time since yesterday. The patient states that he went to his primary care physician, Dr. oJseph Claudio on Thursday or morning, and had a full workup done and there was no changes noted in his care then on evening he started having difficulty walking and fell. He then went to sleep and slept all night. He stated that when he woke up Thursday morning he was unable to get his legs off the bed and had to manually put his legs on the floor and walk very slow steps to keep from falling. Patient stated that this persisted throughout the day and finally a neighbor helped him by calling an ambulance. PAST MEDICAL HISTORY: 1. Coronary artery disease. 2. Hyperlipidemia. 3. Gastroesophageal reflux disease. 4. Angina. 5. Chronic back pain. 6. Vitamin D deficiency. 7. Type 2 diabetes. 8. Prostatic hypertrophy. 9. Vitamin B12 deficiency. 10. Obesity. 11. Allergic rhinitis. 12. Depression with suicide attempt in 2017. PAST SURGICAL HISTORY: 1. Coronary artery stent placed about 10 years ago. 2. Ruptured disk to the neck where a plate and screws were placed. FAMILY HISTORY: Positive for diabetes. SOCIAL HISTORY: Patient is an ex-smoker and stopped about 20 years ago. Denies any alcohol use. He lives in a apartment by himself. Denies any illicit drug use. The patient is currently disabled and does not work. ALLERGIES: Codeine. MEDICATIONS: 1. Acetaminophen 650 mg, 1 tablet p.o. 3 times a day p.r.n. pain. 2. Amlodipine besylate 2.5 mg p.o. at bedtime. 3. Atorvastatin calcium 80 mg q.p.m. 4. Blood sugar test strips. 5. Fluticasone nasal spray 2 sprays at bedtime. 6. Gabapentin 600 mg p.o. t.i.d. p.r.n. 7. Glipizide 5 mg p.o. at bedtime. 8. Omeprazole 40 mg p.o. at bedtime. 9. Flomax 0.4 mg p.o. at bedtime. 10. Aspirin 81 mg p.o. q.p.m. LABS AND DIAGNOSTICS: White blood cell count 7.98, hemoglobin 16.4, hematocrit 47.1, platelets 137,000. PT 13.8, INR 0.98, PTT is 26.9. Sodium 136, potassium 4.4, BUN 19, creatinine 1.4. Glucose 152, calcium 8.6, AST 28, ALT 34, alkaline phosphatase 138. Urine is nonspecific. Chest x-ray on 04/15/[address] of the head was done on 04/15/2019, shows a negative exam. REVIEW OF SYSTEMS: A 12-point review of system was done, all systems were negative except for which is stated above in the HPI. PHYSICAL EXAM: VITAL SIGNS: Pulse rate 84, respiratory rate 20, O2 sats 96% on room air, blood pressure is 140/88 with a MAP of 94. GENERAL: Mr. Camarillo is a 69-year-old male who is in no acute distress, he is lying on the ER stretcher. HENT: Mucosa is moist. Anicteric and acyanotic. Head is normocephalic and atraumatic. NECK: Supple. There is a scar noted to the lower neck region consistent with the neck surgery. NEUROLOGIC: The patient is awake, alert, and oriented. Weakness noted to the left arm, leg, and shoulder. Pupils are equal, round, reactive to light and accommodation. Speech is a little slurred and lip smacking noted. CARDIOVASCULAR: S1, S2 noted. Regular rate and rhythm. No murmurs, rubs, gallops. No JVD. GASTROINTESTINAL: Abdomen soft, nontender. Bowel sounds are present. There is no hepatosplenomegaly. GENITOURINARY: Patient is voiding denies any difficulty with urination or burning. Denies any dysuria or polyuria. Urine sample obtained via straight cath. SKIN: There is a abrasion noted to the left knee. All other skin is intact, pink, warm, and dry. EXTREMITIES: No clubbing, cyanosis, or edema noted. DP and PT pulses are intact and +2. MUSCULOSKELETAL: Decreased strength noted to the left side of the body, especially to the arm and leg. The left shoulder has decreased strength when shrugging at the shoulder. There is some lip- smacking noted when answering questions. Speech is a little slurred at times. ASSESSMENT AND PLAN: 1. Cerebrovascular accident symptoms. We will order MRA/MRI, and Neurology consulted. We will start the patient back on his Plavix, aspirin, and order Lovenox daily. 2. Coronary artery disease. We will order carotid ultrasound, flow studies, and echocardiogram is ordered. We will also start the patient on some IV fluid for rehydration. 3. Hyperlipidemia. We will start restart the patient's atorvastatin. 4. Gastroesophageal reflux disease. We will start the patient back on his omeprazole. 5. Diabetes type 2. We will start the patient on before meals and at bedtime blood sugar checks and diabetic diet with restart patient's glipizide per home dose. Dictated by IRINA García for Ar Duran MD cc: MD Joseph Mendoza MD [facility] CENTERBelia
[2019-04-16] MEDS: FLONASE NAS SCH ×2 (04:46→21:08)
[2019-04-16] MEDS: NS 1,000 ML IV SCH ×2 (06:11→16:30)
[2019-04-16] MEDS: LOVENOX SUBQ SCH (06:12)
[2019-04-16 06:31] LABS: BASO# 0.01 X1000 (0.0-0.2); BASO% 0.1 % (0.0-0.8); EOS# 0.05 X1000 (0.0-0.7); EOS% 0.5 % (0.0-10.0); HEMOGLOBIN 16.3 g/dL (14.0-18.0); IMM GRAN# 0.03 X1000 (0.0-0.04); IMM GRAN% 0.3 % (0.0-0.5); MCV 91.4 FL (81-99); MPV 11.2 FL (7.4-10.4); NEUT# 7.02 X1000 (1.4-6.5); NEUT% 77.1 % (42.2-75.2); PLT 124 X1000 (130-400); RBC 5.25 XMIL (4.7-6.1); RDW 13.6 % (11.5-14.5); WBC 9.11 X1000 (4.8-10.8)
[2019-04-16 06:51] LABS: ALB/GLOB RATIO 1.3; ALBUMIN 3.3 g/dL (3.5-5.0); CALCIUM 8.7 mg/dL (8.8-10.2); CREATININE 1.4 mg/dL (0.7-1.2); POTASSIUM 4.8 mmol/L (3.5-5.1); TOTAL BILIRUBIN 0.84 mg/dL (0.20-1.00); TOTAL PROTEIN 5.8 g/dL (6.3-8.3)
[2019-04-16] MEDS: PLAVIX PO SCH (08:13)
[2019-04-16] MEDS: TYLENOL PO PRN (08:13)
[2019-04-16] MEDS: ZOFRAN IV PRN (08:22)
--- NOTE | 2019-04-16 11:20 | ECHO REPORT ---
ORDER DATE: 04/16/2019 INTERPRETING PHYSICIAN: Dr. Gurwinder Allen ECHOCARDIOGRAPHIC MEASUREMENTS: 1. Interventricular septum: 1.3 cm. 2. Posterior wall: 1.1 cm. 3. Diastolic diameter: 3.8 cm. 4. Left atrium: 4 cm. 5. Aortic root: 3.0 cm. SUMMARY OF THE 2-DIMENSIONAL IMAGIN. Technically suboptimal study. 2. Mitral valve was normal. 3. Aortic valve leaflets are trileaflet. 4. Pulmonic valve not visualized. 5. Tricuspid valve was normal. 6. There is trace to mild mitral regurgitation. 7. There is left atrial enlargement. 8. Peak velocity across the aortic valve less than 2 m/sec. There is no aortic stenosis or regurgitation. 9. There is mild tricuspid regurgitation. Peak velocity across the tricuspid valve less than 2 m/sec. 10. Optison was used to assess left ventricular systolic function and endocardial border, normal left ventricular cavity size. Concentric left ventricular hypertrophy. Estimated ejection fraction of 60 to 65 percent. 11. There is diastolic dysfunction. 12. There is no pericardial effusion or obvious intracardiac mass or thrombus seen. cc: Gurwinder Allen MD
[2019-04-16 13:09] LABS: URINE SOURCE CATH
[2019-04-16 13:14] LABS: BILIRUBIN URINE NEGATIVE (NEGATIVE); BLOOD URINE NEGATIVE (NEGATIVE); COLOR YELLOW; GLUCOSE URINE NEGATIVE (NEGATIVE); KETONE URINE NEGATIVE (NEGATIVE); LEUKOCYTES URINE NEGATIVE (NEGATIVE); NITRITE URINE NEGATIVE (NEGATIVE); PH URINE 5.5; PROTEIN URINE TRACE mg/dL (NEGATIVE); SP GRAVITY URINE 1.026; TURBIDITY URINE CLEAR (CLEAR); UR EPITHELIAL CELLS <10 /HPF (<10); URINE BACTERIA NEGATIVE /HPF; URINE RBC <10 /HPF (<10); URINE WBC <10 /HPF (<10); UROBILINOGEN URINE NORMAL (NORMAL)
--- NOTE | 2019-04-16 14:34 | PROGRESS NOTE ---
DATE: 04/16/2019 SUBJECTIVE: This patient is resting comfortably in bed. He is not complaining of any kind of problem swallowing, but he does have generalized weakness mostly on the left side. As per the patient, last night he was fine and suddenly he felt weak, but he falls asleep and the next day he could not get out of the bed. He spent a lot of time in his apartment until he was found by one of the family members who brought this patient over to the emergency department. He seems to be weaker on the left side, but he does have bilateral weakness. OBJECTIVE: Vital Signs: Temperature 98.8 degrees, pulse 80, respiratory rate 16, blood pressure 128/77, oxygen saturation 99 on room air. HEENT: Head normocephalic, no trauma. PERRLA. He does have some weakness and decreased sensation on the left side of the face. Neck: Supple. No JVD, central trachea. Chest: Clear to auscultation. No wheezing. No rales. Abdomen: Soft, nontender, nondistended. No hepatosplenomegaly. Extremities: No edema, no clubbing, no cyanosis. Neurological examination: This patient is alert, he is oriented. He is following commands, but he does have generalized weakness, especially on the left side; around 3/5 on the right side and 2 to 3/5 on the left side, probably a little bit of decreased sensation at the level of the left lower extremity. LABORATORY: WBC 9.1, hemoglobin 16.3, hematocrit 48, platelets 124. Sodium 142, potassium 4.8, chloride 106, bicarbonate 25. BUN 18, creatinine 1.4, glucose 113, calcium 8.7, albumin 3.3. ASSESSMENT AND PLAN: 1. Possible cerebrovascular accident. We will do an MRI and MRA of the brain next Thursday and also Neurology Department will be consulted. Echocardiogram did not show any vegetation or thrombosis. This patient has been placed on aspirin and Plavix. We will continue with deep vein thrombosis prophylaxis as well. CT of the head did not show any acute abnormality. Physical therapy and occupational therapy, as well as speech therapy, have been consulted. 2. Hypertension, stable. Continue with same management. 3. History of coronary artery disease. Aware. Echocardiogram with no new abnormality, pending carotid ultrasound. We will continue with gentle intravenous fluids. 4. Hyperlipidemia. Continue with atorvastatin, but triglyceride and cholesterol, LDL, they look fine. 5. Type 2 diabetes. Continue pattern of blood sugar and sliding scale insulin. 6. Gastroesophageal reflux disease. Continue with omeprazole. cc: Silvano Guzmán MD
[2019-04-16] MEDS ORDERED: ULTRAM PO ONE (16:11)
[2019-04-16] MEDS: PRILOSEC PO SCH (21:07)
[2019-04-16] MEDS: GLUCOTROL PO SCH (21:07)
[2019-04-16] MEDS: ASPIRIN EC PO SCH (21:07)
[2019-04-16] MEDS: LIPITOR PO SCH (21:07)
[2019-04-16] MEDS: FLOMAX PO SCH (21:08)
[2019-04-17] MEDS: LOVENOX SUBQ SCH (05:05)
[2019-04-17 07:36] LABS: CALCIUM 7.6 mg/dL (8.8-10.2); CREATININE 1.2 mg/dL (0.7-1.2); POTASSIUM 3.5 mmol/L (3.5-5.1)
[2019-04-17] MEDS: PLAVIX PO SCH (08:30)
[2019-04-17] MEDS: ZOFRAN IV PRN (09:36)
[2019-04-17] MEDS: NS 1,000 ML IV SCH ×2 (13:54→13:56)
--- NOTE | 2019-04-17 14:55 | PROGRESS NOTE ---
DATE: 04/17/2019 SUBJECTIVE: This patient is resting comfortably in bed, not complaining of pain or swallowing problem. He seems to be doing better today, he feels more stronger. Pending MRI tomorrow and Neurology Department evaluation. OBJECTIVE: Vital Signs: Temperature 98.2, pulse 70, respiratory rate 20, blood pressure 122/68, oxygen saturation 97% on room air. HEENT: Head normocephalic, no trauma. PERRLA. He does have some weakness and decreased sensation on the left side of the face. Neck: Supple, no JVD. Central trachea. Chest: Clear to auscultation. No wheezing. No rales. Abdomen: Soft, nontender, nondistended. No hepatosplenomegaly. Extremities: No edema, no clubbing, no cyanosis. Neurologic: The patient is alert. He is oriented. He is following commands, but he does have generalized weakness, especially on the left side around 3-4/5, right side is 4-5/5, probably a little bit of decreased sensation at the level of the left lower extremity. LABORATORY: Sodium 137, potassium 3.5, chloride 106, bicarbonate 21, BUN 18, creatinine 1.2, glucose 114, calcium 7.6. ASSESSMENT AND PLAN: 1. Possible cerebrovascular accident. We will do an MRI and MRA of the brain tomorrow and also Neurology Department will evaluate this patient. Echocardiogram did not show vegetation or thrombosis. This patient has been placed on aspirin and Plavix. We will continue with DVT prophylaxis as well. CT of the head did not show any acute abnormality. I do feel that this patient is better compared with yesterday. Physical Therapy, Occupational Therapy and Speech Therapy have been consulted. 2. Hypertension, stable. Continue same management. 3. History of coronary artery disease, aware. Echocardiogram is not showing any new abnormality, pending carotid ultrasound results and MRI. 4. Hyperlipidemia. Continue with atorvastatin. 5. Type 2 diabetes. Continue pattern of blood sugar and sliding scale insulin. 6. Gastroesophageal reflux disease. Continue with omeprazole. cc: Silvano Guzmán MD
[2019-04-17] MEDS: TYLENOL PO PRN (18:32)
[2019-04-17] MEDS: FLOMAX PO SCH (20:13)
[2019-04-17] MEDS: ASPIRIN EC PO SCH (20:13)
[2019-04-17] MEDS: PRILOSEC PO SCH (20:13)
[2019-04-17] MEDS: LIPITOR PO SCH (20:14)
[2019-04-17] MEDS: GLUCOTROL PO SCH (20:14)
[2019-04-17] MEDS: FLONASE NAS SCH (20:15)
[2019-04-18] MEDS: LOVENOX SUBQ SCH (05:24)
--- NOTE | 2019-04-18 07:04 | EKG Report ---
Test Performed on : 04/15/2019 5:08:27 PM Test Reason : Stroke like symptoms Blood Pressure : / mmHG Vent. Rate : 087 BPM Atrial Rate : 087 BPM P-R Int : 140 ms QRS Dur : 088 ms QT Int : 342 ms P-R-T Axes : 048 019 058 degrees QTc Int : 411 ms Normal sinus rhythm. Normal ECG When compared with ECG of 09-SEP-2018 12:44, No significant change was found Unconfirmed Result
[2019-04-18 07:17] LABS: CALCIUM 8.1 mg/dL (8.8-10.2); CREATININE 1.2 mg/dL (0.7-1.2); POTASSIUM 4.2 mmol/L (3.5-5.1)
[2019-04-18] MEDS ORDERED: D50W SYRINGE IV ONE ×2 (07:25→11:05)
--- NOTE | 2019-04-18 09:04 | Diag Imaging Result Doc PS360 ---
EXAM: MRI BRAIN W/WO CONTRAST 04/18/2019 HISTORY: stroke TECHNIQUE: T1 sagittal and axial, post gadolinium axial and coronal reformation, T2, FLAIR, DWI axial and coronal gradient echo. COMMENT: There are no previous MRI studies. There are patchy and punctate areas of increased T2-weighted signal intensity in the centrum semiovale ovale on the left and in the periventricular white matter bilaterally. There is no evidence of bleed mass effect or abnormal extra-axial fluid collection. There is no evidence of restricted diffusion. There is no evidence of abnormal gadolinium enhancement. IMPRESSION: Chronic ischemic microvascular changes. Electronically signed by Anjum Pereira 04/18/2019 9:02 AM
--- NOTE | 2019-04-18 09:05 | Diag Imaging Result Doc PS360 ---
EXAM: MRA BRAIN W/O CONTRAST 04/18/2019 HISTORY: stroke TECHNIQUE: 3-D [id number] COMMENT: There is no evidence of aneurysm or major branch occlusion. The left posterior communicating artery is visible. IMPRESSION: No apparent abnormality. Electronically signed by Anjum Pereira 04/18/2019 9:03 AM
[2019-04-18] MEDS: PLAVIX PO SCH (09:50)
[2019-04-18] MEDS: D5 1/2 NS 1,000 ML IV SCH (11:27)
--- NOTE | 2019-04-18 11:59 | PROGRESS NOTE ---
DATE: 04/18/2019 SUBJECTIVE: The patient is resting comfortably in bed. He has been having hypoglycemia, so I will stop his glipizide and I will put him on D5 half normal saline. He still has some left-sided weakness, but we did not see any acute abnormality on the brain MRI. I am not quite sure if we are dealing with a TIA or an early parkinsonism or any other neurological condition. Also this patient has been complaining of some diarrhea. He has not recently been on antibiotics. OBJECTIVE: Vital Signs: Temperature 97.6 degrees, pulse 69, respiratory rate 17, blood pressure 132/76, oxygen saturation 99% on room air. HEENT: Head normocephalic, no trauma. PERRLA. Neck: Supple. No JVD. No masses. Central trachea. Chest: Clear to auscultation. No wheezing. No rales. Abdomen: Soft, nontender, nondistended. No hepatosplenomegaly. Extremities: No edema, no clubbing, no cyanosis. Neurological: This patient is alert. He is oriented. He is answering to all my questions. He has a left sided weakness, which is mild today. LABORATORY: Sodium 140, potassium 4.2, chloride 109, bicarbonate 28, BUN 14, creatinine 1.2, glucose 54, calcium 8.1. ASSESSMENT AND PLAN: 1. Left-sided weakness. He has been getting better for the past couple of days, but he is still complaining of weakness. MRI and MRA did not show any acute abnormality. Echocardiogram did not show any vegetation pending carotic ultrasound report. He has been placed on aspirin and Plavix since admission. I will wait for Neurology Department evaluation. In the meantime I will continue physical therapy, occupational therapy and speech therapy. 2. Dysphagia, I have placed a consult for Gastroenterology Department. Apparently, this patient has been having EGDs with esophageal dilation before, a couple of times, last time probably a couple of years ago. 3. Hypertension, stable. 4. History of coronary artery disease, aware. 5. Some diarrhea. Continue with IV fluids. He has not been on antibiotics recently. 6. Hyperlipidemia. Continue with atorvastatin. 7. Type 2 diabetes, actually this patient has been having hypoglycemia, so I have stopped the glipizide and I will give him some D5 half normal saline to try to keep the blood sugar better. 8. Gastroesophageal reflux disease. Continue with omeprazole. cc: Silvano Guzmán MD
--- NOTE | 2019-04-18 13:41 | GASTROENTEROLOGY CONSULTATION ---
DATE: 04/18/2019 ATTENDING PHYSICIAN: Dr. Wall. PRIMARY CARE DOCTOR: Dr. Claudio. REASON FOR CONSULT: Dysphagia. HISTORY OF PRESENT ILLNESS: Mr. Camarillo is a 69-year-old male who was admitted on 04/15/2019 for symptoms of dizziness, blurry vision, and falling for 1 day. He was initially admitted to rule out a CVA. During the admission, he had MRI, MRA which did not show any acute abnormality. He complains of left-sided weakness. His workup is ongoing. Echocardiogram did not show any evidence of vegetation. He has been on aspirin and Plavix since admission. He also complained of trouble swallowing, going on for the last 2 years. Every time he eats any piece of bread, it gets stuck in the middle of the chest and it comes back up in his mouth, into his nose. Gastroenterology was consulted for further management. PAST MEDICAL HISTORY: Coronary artery disease, hyperlipidemia, reflux disease, angina, coronary stents, chronic back pain, vitamin D deficiency, type 2 diabetes, prostatic hypertrophy, vitamin B12 deficiency, obesity, allergic rhinitis, depression with suicide attempt in 2017. PAST SURGICAL HISTORY: Coronary artery stent placement 10 years ago, ruptured disk to the neck with a plate and screws placed. FAMILY HISTORY: Significant for diabetes. SOCIAL HISTORY: He is an ex-smoker, quit about 20 years ago. He denies history of alcohol abuse. He lives in an apartment by himself. He denies any illicit drug abuse. He is currently disabled and does not work. ALLERGIES: Codeine. MEDICATIONS IN THE HOSPITAL: Include fluticasone, Flomax, Tylenol, aspirin 81 every day, Lipitor, Plavix, Lovenox 40 mg every day, dextrose 5%, Prilosec 40 mg daily at bedtime, Zofran 4 mg IV every 4 hours as needed. His dextrose was given once. DIET: He is on a heart healthy diet. REVIEW OF SYSTEMS: He denies any fevers, rigors, chills, chest pain, shortness of breath, dyspnea. He denies any vomiting blood or passing blood in the stools. He does have a history of chronic reflux disease. His last EGD was done many years ago at [place]. He is on blood thinners. He is on aspirin and Plavix since admission on 04/15/2019. He does have a history of arthritis in the back. He was admitted with neurological complaints of weakness, which is currently worked up by the primary care team. PHYSICAL EXAMINATION: Vital Signs: Temperature of 97.6 degrees, pulse rate of 69, respiratory rate of 17, blood pressure 132/76, saturating 99% on room air. Body weight of 246 pounds, BMI 32.5 kg/m2. General Appearance: Moderately built, moderately nourished. Sitting in a chair, in no acute distress. HEENT: No pallor. No icterus. Pupils equal, reactive to light. Neck: Supple. Abdomen: Obese, soft, nontender, nondistended. No guarding or rebound. Extremities: No cyanosis, clubbing. Neurologic: He is alert, awake, and answers questions. LABS: His hemoglobin and hematocrit on 04/16/2019 were 16.3 and 48, white count of 9.1, platelet count of 124,000. Sodium 140, potassium 4.2, chloride 109, bicarb 20, anion gap 3, BUN of 14, creatinine 0.2, glucose of 54, calcium is 8.1. His liver enzymes on 04/16/2019 were AST 29, ALT 34, alkaline phosphatase 126, total protein 5.8, albumin of 3.3, total bilirubin is 0.84. CT of the head was negative on admission. MRI of the brain showed chronic ischemic microvascular changes. MRA, no apparent acute abnormality. On echocardiogram, EF of 60 to 65 percent. IMPRESSION AND PLAN: 1. Dysphagia. We will schedule the patient for an upper gastrointestinal, barium swallow to evaluate the etiology for his dysphagia. Since the patient is on blood thinners, it needs to be held for a few days before we can have esophagogastroduodenoscopy with dilation. 2. The patient will continue on reflux medicine, omeprazole once daily. The patient was encouraged to chew the food well. 3. Left-sided weakness. This is being worked up by the primary care team. 4. History of coronary artery disease and history of a coronary artery stent. Aware. He is on aspirin and Plavix. 5. Deep venous thrombosis prophylaxis with Lovenox. 6. Hyperlipidemia. He is on atorvastatin. 7. Type 2 diabetes. He had hypoglycemic episodes. This is being monitored by the primary care team. 8. Obesity. Aware. Patient was counseled to lose weight. 9. Further recommendations to follow pending hospital course. The above plan was discussed with the patient and all questions were answered. Please call us with any further questions. Thank you for allowing us to follow with the patient. cc: MD Joseph Palumbo MD Omar J. Sosa-Chirinos, MD
--- NOTE | 2019-04-18 14:16 | CONSULTATION ---
DATE OF CONSULTATION: 04/18/2019 Mr. Camarillo is 69 years old. He reports traveling to visit family uneventfully a few days ago and then when he rested at home, he had abrupt onset of room spinning dizziness on arising. He had unsteady gait with stumbling. He eventually fell and struck his head. He believes he had weakness in the left limbs and numbness on the left side of the face but those reports are less certain. Vision was a little bit blurred but there was no focal loss of visual field or diplopia. He did not have headache immediately but did have headache in recent days. His balance has been improved in the last few days. He reports he checked his blood sugar at home and it was 111 just after onset of this problem. He reports he does not have diabetes mellitus but he takes medicine to control blood sugar. He has hypertension, dyslipidemia, history of depression, and psychiatry problems. He has chronic oral dyskinesia attributed to prior medication. Workup here includes brain MRI done with and without contrast showing old micro- ischemic changes in the white matter but nothing focal or acute. Brain MRA was unremarkable. Echocardiogram showed no source of embolus. He has been afebrile since the day of admission but did have one temperature recorded at 102.8 on admission. Heart rate has been stable, 60s- 90s. Systolic blood pressures ranged 110s-150s. He has had blood sugars as low as 50 last night, otherwise mostly mid 100s. Slight low calcium, 8.6 down to 8.1. On exam, Mr. Camarillo is awake, alert, attentive. He answered questions appropriately. Speech is not dysarthric. Language function is intact on bedside testing. Memory seems good. I did not test his cognitive function thoroughly. Head and neck are unremarkable. Visual denton are full tested by confrontational finger counting. Extraocular movements are full. Facial motility is normal and symmetric. Gag is intact. Tongue is midline. There is intermittent arrhythmic oral and buccal mouth movement, consistent with dyskinesia. This is clearly bilateral. I do not see any other abnormal movement. Limb tone is symmetric without cogwheeling or rigidity. There is no resting tremor. He did well on [id number] and [id number] testing bilaterally. Power is normal and symmetric in the limbs with some inconsistent effort, mostly when testing the left arm. Plantar response is silent bilaterally. Proprioception is normal at the great toe MTP joint bilaterally. He has a stocking pattern of sensory loss bilaterally. Sensation is symmetric over the hands. I did not test his gait. IMPRESSION: 1. Reported sudden onset of gait difficulty. His report to me suggests vertigo and raises question of labyrinthopathy. Negative brain MRI is reassuring. He certainly has risk factors for cerebrovascular ischemic problem but I do not find a definite focal deficit. We might try meclizine if he does not continue improving. ENT evaluation would be another consideration if he does not recover. 2. Risk factors for cerebrovascular ischemic problem. He was hypoglycemic overnight. I think we can treat blood pressure aggressively. I agree with continuing his statin. Clopidogrel was added earlier to his baseline aspirin. There would be some risk for bleeding complications and uncertain benefit with dual antiplatelet management at this point, so I think we can stop clopidogrel. 3. Oral and buccal dyskinesia, consistent with previous neuroleptic use. This problem does not need urgent attention. Thanks for asking neurology to see Mr. Camarillo. I do not have any urgent suggestion. I think his recent presentation was likely not a primary ROUSTABOUT HEAD event. cc: MD ROSIBEL Medrano III
[2019-04-18] MEDS: TYLENOL PO PRN (15:03)
--- NOTE | 2019-04-18 17:37 | PROGRESS NOTE ---
DATE: 04/18/2019 PROGRESS NOTE ADDENDUM: The critical painter assistant team was called to evaluate the patient. As per the nurse, he was found unresponsive in bed. I presented to the bedside to evaluate this patient. Vital signs stable, I think a little bit elevated the blood pressure. Blood sugar more than 70. Interestingly, this patient was resisting my physical exam. He did not allow to open his eyes. He was avoiding that, he was closing his eyes with some strength so I cannot open them. It is felt that for some reason he is doing this on purpose. We just had an MRI done that was completely normal today and Neurology Department evaluated this patient a few hours ago. There is not an stroke and again, probably this patient for some reason that I do not know yet, is likely faking these acute problems. We will continue to monitor. We will continue checking his blood sugar. Case discussed with his nurse. cc: Silvano Guzmán MD MTDD
[2019-04-18] MEDS: FLONASE NAS SCH (21:57)
[2019-04-18] MEDS: PRILOSEC PO SCH (21:58)
[2019-04-18] MEDS: LIPITOR PO SCH (21:58)
[2019-04-18] MEDS: FLOMAX PO SCH (21:58)
[2019-04-18] MEDS: ASPIRIN EC PO SCH (21:58)
[2019-04-19] MEDS: D5 1/2 NS 1,000 ML IV SCH (05:40)
[2019-04-19] MEDS: LOVENOX SUBQ SCH (05:40)
[2019-04-19 06:21] LABS: BASO# 0.04 X1000 (0.0-0.2); BASO% 0.7 % (0.0-0.8); EOS# 0.22 X1000 (0.0-0.7); EOS% 3.9 % (0.0-10.0); HEMATOCRIT 40.2 % (42.0-52.0); HEMOGLOBIN 14.1 g/dL (14.0-18.0); IMM GRAN# 0.02 X1000 (0.0-0.04); IMM GRAN% 0.4 % (0.0-0.5); LYMPH# 1.56 X1000 (1.2-3.4); LYMPH% 27.9 % (20.5-51.1); MCH 31.4 PG (27-31); MCHC 35.1 g/dL (33-37); MCV 89.5 FL (81-99); MONO# 0.52 X1000 (0.11-0.59); MONO% 9.3 % (1.7-9.3); NEUT# 3.24 X1000 (1.4-6.5); NEUT% 57.8 % (42.2-75.2); PLT 137 X1000 (130-400); RBC 4.49 XMIL (4.7-6.1); RDW 13.4 % (11.5-14.5)
[2019-04-19 06:58] LABS: AGAP 7; BUN 12 mg/dL (8-22); CALCIUM 8.2 mg/dL (8.8-10.2); CHLORIDE 109 mmol/L (98-107); CK PROFILE 64 U/L (24-204); COSMO 281; CREATININE 1.1 mg/dL (0.7-1.2); ESTIMATED GFR > 60; GLUCOSE 102 mg/dL (70-104); POTASSIUM 3.8 mmol/L (3.5-5.1); SODIUM 141 mmol/L (136-145); TCO2 25 mmol/L (25-35)
--- NOTE | 2019-04-19 13:04 | Diag Imaging Result Doc PS360 ---
GI SERIES WITH BA SWALLOW - 04/19/2019 INDICATION: dysphagia TECHNIQUE: Total fluoroscopy time was 52 seconds. 46 images were obtained. COMPARISON: None FINDINGS: There were occasional shallow penetrations. There is no aspiration. There is extremely severe anterior osteophyte formation at C2-3, C3-4 and C4-5. This probably measures almost a centimeter. This does cause some mass effect on the posterior wall of the oropharynx and hypopharynx. During swallowing, there is extensive tertiary wave formation throughout the esophagus. There is impaired clearance when the patient is semirecumbent. No reflux noted during the exam. The stomach appears normal. IMPRESSION: 1. Shallow penetrations when ingesting thin liquids. No aspiration. 2. Moderate presbyesophagus. Moderate hang-up of clearance of the esophagus when the patient is semi-recumbent. Electronically signed by Demetri Lee 04/19/2019 1:01 PM
--- NOTE | 2019-04-19 14:32 | Diag Imaging Result Doc PS360 ---
BA SWALLOW W/VIDEO SPEECH THER - 04/19/2019 INDICATION: orophayngeal dysphagia TECHNIQUE: Total fluoroscopy time was 15 seconds. 107 images were obtained. COMPARISON: Upper GI exam from earlier today FINDINGS: There is no visible aspiration or penetration. There is no significant delay in clearance of the oropharynx. As stated previously, there are bulky anterior osteophytes at the upper cervical spine impinging significantly into the posterior wall of the oropharynx and hypopharynx. These are mainly at C2-3, C3-4 and C4-5. There is an anterior fusion plate at C5-6 and good position. No fracture or subluxation. IMPRESSION: Significant bulky anterior degenerative osteophyte formation throughout the cervical spine impinging on the posterior pharyngeal wall. No aspiration or penetration. Electronically signed by Demetri Lee 04/19/2019 2:30 PM
--- NOTE | 2019-04-19 15:12 | PROGRESS NOTE ---
DATE: 04/19/2019 ROOM NUMBER: [id number] A. Mr. Camarillo had an episode late yesterday with apparent poor responsiveness. On exam then, he seemed clearly alert and voluntarily choosing not to communicate or respond. This morning, he is brighter than yesterday, awake, alert, attentive. The mouth movement is about the same. Speech is unchanged. There is no definite focal deficit and no new neurologic finding. I do not have any new suggestion or anything to add to comments made in initial note yesterday. Again, I do not think he has had a primary [facility] event. Thanks again for asking Neurology to see Mr. Camarillo. cc: MD ROSIBEL Medrano III
--- NOTE | 2019-04-19 15:35 | PROGRESS NOTE ---
DATE: 04/19/2019 INTERVAL HISTORY: The patient with no further episodes of questionable unresponsiveness. Just returned from modified barium swallow. He has been eating full meals without difficulty, but did reportedly have some slight dry cough after his meal. No other acute events were noted. No new complaints. REVIEW OF SYSTEMS: Twelve point review of systems negative except as per interval history. LABS: CBC unremarkable. Basic metabolic panel unremarkable aside from chloride 109. No further hypoglycemia. VITALS: T-max 98.8, pulse 69, respirations 16, blood pressure 151/76, O2 sat 100% on room air. PHYSICAL EXAMINATION: General: No acute distress. Vitals as above. HEENT: Normocephalic, atraumatic. Moist mucous membranes. No cervical adenopathy. Cardiovascular: Regular rate and rhythm. No murmurs noted. Pulmonary: Clear to auscultation bilaterally. No wheezing, rales or rhonchi. Abdomen: Soft, nontender, nondistended. Bowel sounds positive. Extremities: Peripheral pulses intact. No clubbing, cyanosis or edema. Neurologic: Mild left-sided weakness, otherwise no focal deficits. Cranial nerves grossly Intact, although speech is somewhat slow. Psychiatric: Odd affect. Awake, alert, oriented x 3. Skin: No new rashes or lesions identified. ASSESSMENT AND PLAN: 1. Left-sided weakness, improving somewhat. Ulnar imaging unremarkable. Neuro recommending meclizine if he fails to improve, but the patient appears stable currently. Psychiatric etiology also a possibility giving given odd episode of 1 where patient was unresponsive, but resisting attempts to move him yesterday. Appears to be stable, regardless. GI workup ongoing, but if that is also unremarkable, then likely discharge to home versus rehab, whenever that can be arranged. 2. Dysphagia. Has reportedly had esophageal stenosis with dilation in the past. Tolerating food well, but has reportedly had some coughing afterwards. Regular barium swallow this morning without much significant findings. Modified barium just completed. Will await results. If they are also unremarkable, then will be stable for discharge. 3. Hypertension, stable. 4. CAD. Continue aspirin. 5. Hyperlipidemia. Continue atorvastatin. 6. Diabetes. Some hypoglycemia yesterday. Currently off all diabetes medications and remaining fairly stable. Monitor. 7. Gastroesophageal reflux disease. Continue omeprazole. [facility]
[2019-04-19] MEDS: PRILOSEC PO SCH (21:36)
[2019-04-19] MEDS: FLOMAX PO SCH (21:36)
[2019-04-19] MEDS: FLONASE NAS SCH (21:36)
[2019-04-19] MEDS: LIPITOR PO SCH (21:36)
--- NOTE | 2019-04-19 23:10 | PROVIDER PROGRESS NOTE ---
Progress Note SUBJECTIVE: No acute overnight events. Patient completed esophagram and MBS today. He reports developing coughing and nasopharyngeal regurgitation while eating. No dysphagia to liquids. OBJECTIVE: Last Vital Signs Temp 98 F 04/19/19 19:57 Pulse 62 04/19/19 19:57 Resp 21 04/19/19 19:57 BP 126/70 04/19/19 19:57 Pulse Ox 97 04/19/19 20:43 Height 6 ft 1 in Weight 246 lb 7 oz GEN: awake, alert, NAD HEENT: anicteric, MMM NECK: supple, no jvd CV: RRR, no murmurs PULM: CTAB, no wheezing ABD: soft NT, ND, NABS, no rebound or guarding EXT: no cce NEURO: nonfocal LABS: none IMAGING: BA SWALLOW W/VIDEO SPEECH THER - 04/19/2019 INDICATION: orophayngeal dysphagia TECHNIQUE: Total fluoroscopy time was 15 seconds. 107 images were obtained. COMPARISON: Upper GI exam from earlier today FINDINGS: There is no visible aspiration or penetration. There is no significant delay in clearanceof the oropharynx. As stated previously, there are bulky anterior osteophytes at the upper cervical spine impinging significantly into the posterior wall of the oropharynx and hypopharynx. These are mainly at C2-3, C3-4 and C4-5. There is an anterior fusion plate at C5-6 and good position. No fracture or subluxation. IMPRESSION: Significant bulky anterior degenerative osteophyte formation throughout the cervical spine impinging on the posterior pharyngeal wall. No aspiration or penetration. GI SERIES WITH BA SWALLOW - 04/19/2019 INDICATION: dysphagia TECHNIQUE: Total fluoroscopy time was 52 seconds. 46 images were obtained. COMPARISON: None FINDINGS: There were occasional shallow penetrations. There is no aspiration. There is extremely severe anterior osteophyte formation at C2-3, C3-4 and C4-5. This probably measures almost a centimeter. This does cause some mass effect on the posterior wall of the oropharynx and hypopharynx. During swallowing, there is extensive tertiary wave formation throughout the esophagus. There is impaired clearance when the patient is semirecumbent. No reflux noted during the exam. The stomach appears normal. IMPRESSION: 1. Shallow penetrations when ingesting thin liquids. No aspiration. 2. Moderate presbyesophagus. Moderate hang-up of clearance of the esophagus when the patient is semi-recumbent. A/P: Mr. Mukund Camarillo is a 69 year old man with history of cervical disk surgery who presented with left-sided weakness ruled out for CVA. GI consulted for longstanding intermittent dysphagia to solids found to have oropharyngeal dysphagia likely from cervical osteophytes. #Oropharyngeal dysphagia: suspected from extrinsic compression of the oropharynx/hypopharynx from C2-5 cervical osteophytes. There was no esophageal luminal obstruction. There was moderate presbyesophagus. - NPO after MN for diagnostic EGD tomorrow - continue dysphagia precautions - continue PPI - if EGD negative, then recommend orthopedic evaluation of cervical osteophytes #CAD: holding aspiring and plavix #GERD: continue PPI Will follow with you
[2019-04-20] MEDS: D5 1/2 NS 1,000 ML IV SCH (03:39)
[2019-04-20] MEDS: LOVENOX SUBQ SCH (05:15)
[2019-04-20] MEDS ORDERED: DIPRIVAN 1% ONE (09:11)
[2019-04-20] MEDS ORDERED: XYLOCAINE-MPF 2% ONE (09:14)
--- NOTE | 2019-04-20 11:43 | Carotid Study ---
DATE: 04/16/2019 PROCEDURE: Bilateral duplex and color flow imaging of the carotid arteries performed using the [employer] Vivid E9 Ultrasound System with a 9L-D transducer. REFERRING PHYSICIAN: Ar Duran MD. INTERPRETING PHYSICIAN: Romy Tariq MD. TECH: Niurka Hooper [facility]. INDICATIONS: A 69-year-old male. CVA - stroke. OBSERVED DATA RIGHT LEFT Brachial Blood Pressure Carotid Pulse Bruits: Carotid/Sub DIAGRAM OF ULTRASOUND IMAGING R L RIGHT INT EXT INT EXT LEFT Edil (cm/s) Edil (cm/s) Subclavian 72/0 Subclavian 67/0 CCA Proximal 74/10 CCA Proximal 87/14 CCA Distal 73/13 CCA Distal 62/17 Bulb 53/11 Bulb 59/15 ICA Proximal 39/12 ICA Proximal 34/10 ICA Mid 44/16 ICA Mid 51/16 ICA Distal 57/19 ICA Distal 51/20 ECA 63/6 ECA 60/9 Vertebral Forward flow 34/9 Vertebral Forward flow 35/11 ICA/CCA Ratio 0.77 ICA/CCA Ratio 0.59 % Stenosis 0-39% % Stenosis 0-39% PHYSICIAN INTERPRETATION: Mild atherosclerotic disease of the distal common and internal carotid arteries bilaterally without evidence of a hemodynamically significant lesion in either carotid system. cc: Romy Tariq MD
--- NOTE | 2019-04-20 11:48 | OPERATIVE NOTE ---
PROCEDURE DATE: 04/20/2019 EXAM: Upper gastrointestinal endoscopy. PROVIDER: Mikie Echols M.D. INDICATIONS: Oropharyngeal dysphagia with notable cervical osteophytes on esophagram and modified barium swallow. Rule out esophageal pathology. MEDICATIONS: Monitored anesthesia care. DESCRIPTION OF PROCEDURE: Prior to the procedure, history and physical was performed, and the patient's medication allergies were reviewed. The patient's tolerance to previous anesthesia was also reviewed. The risks and benefits of the procedure and sedation options and risks were discussed with the patient. All questions were answered. Informed consent was obtained. After reviewing the risks and benefits, the patient was deemed in satisfactory condition to undergo the procedure. The endoscope was passed under direct visualization. Throughout the procedure, the patient's blood pressure, pulse, and oxygen saturation were monitored continuously. Endoscope was introduced in the mouth, and advanced to the second part of the duodenum. The upper GI endoscopy was accomplished without difficulty. The patient tolerated the procedure well. COMPLICATIONS: No immediate complications. ESTIMATED BLOOD LOSS: Minimal. FINDINGS: There was some minimal difficulty intubating the esophagus, suggestive of cervical obstruction, likely from osteophytes. The esophagus was notable for irregular Z-line at 40 cm from the incisors. There was no luminal obstruction or esophagitis. Distal esophagus biopsies were obtained to rule out Fitzgerald's esophagus. Midesophageal biopsies were obtained to rule out eosinophilic esophagitis. There was diffuse mild gastritis in the stomach. Random gastric biopsies were obtained to rule out Helicobacter pylori. The bulb and second portion of the duodenum were normal. Retroflexion in the stomach was unrevealing. IMPRESSION: 1. Irregular Z-line. 2. Mild gastritis. RECOMMENDATIONS: Await pathology results. Continue oral PPI once daily. Avoid NSAIDs. Dysphagia precautions. Follow up pathology. Resume diabetic diet. The patient will likely need referral to a spine surgeon for possible intervention of known osteophytes in his cervical neck. Follow up with GI in 2 to 4 weeks upon discharge. Please call with any questions or concerns.
--- NOTE | 2019-04-20 15:16 | DISCHARGE SUMMARY ---
ADMISSION DATE: 04/15/2019 DISCHARGE DATE: 04/20/2019 ADMISSION DIAGNOSIS: 1. Transient ischemic attack versus cerebrovascular accident. Was resumed on Plavix, aspirin, and Lovenox ordered daily. 2. Coronary artery disease. Orders for carotid ultrasound. Echocardiogram was ordered. Intravenous fluid hydration was started. 3. Hyperlipidemia. Continued on statin. 4. Gastroesophageal reflux disease. Continued on omeprazole. 5. Diabetes mellitus type 2. Was started on glipizide, diabetic diet, pattern blood glucoses. DISCHARGE DIAGNOSIS: 1. Left-sided weakness improving somewhat. Ulnar imaging unremarkable. Neurology recommended meclizine if he failed to improve. Stable. Possible psychiatric etiology given odd episode once where patient was unresponsive but was resisting attempts to move him. 2. Dysphagia. GI workup performed. Report of esophageal stenosis with dilatation in the past, tolerating food but has some coughing with it. Regular barium swallow is normal. Dr. Echols performed EGD, showed some mild gastritis and is being tested to rule out Hernandez's esophagus, had irregular Z-line. 3. Hypertension, stable. 4. Coronary artery disease. Continue aspirin, statin, and Plavix. 5. Hyperlipidemia. Continue atorvastatin. 6. Diabetes mellitus type 2. Had some hypoglycemia on the 3rd. All diabetic medications were stopped and he has remained fairly stable. 7. Gastroesophageal reflux disease. Continue omeprazole. CONSULTATIONS: Gastroenterology, Mikie Echols MD. Ambrose Kelly III, MD was also consulted. SURGERIES AND PROCEDURES: On 04/20/2019, Dr. Echols performed an upper gastrointestinal endoscopy. He wants to await pathology results, continue the oral proton pump inhibitor daily, avoid NSAIDs, dysphagia precautions, follow up pathology, resume diabetic diet. Will likely need to referral to a spine surgeon for possible intervention of known osteophytes in his cervical neck, and he wants him to follow up with him in 2-4 weeks upon discharge. The impression included irregular Z-line and mild gastritis. HOSPITAL COURSE: On 04/15/2019, Mr. Mukund Camarillo a 69-year-old male with complaints of dizziness, blurred vision, balance issues, had multiple falls at home for about a day, oriented and followed commands on presentation. The patient's brother is at the bedside. Apparently, there was abrasion on the left knee. Neuro assessment revealed some weakness to the left arm, shoulder, and leg, which the patient claims had started the day before. Feeling tired all the time. Apparently went to his primary care provider prior to coming to the hospital, was okay after he saw him, and the next day was unable to apparently get out of bed without falling. So a neighbor called an ambulance and brought him here. He essentially had a full workup to rule out stroke. The carotid Dopplers were negative. Echocardiogram: He had normal ejection fraction. There is some diastolic dysfunction with that but no thrombi. Brain MRA was normal. Brain MRI showed some chronic ischemic microvascular changes, and his head CT was also negative. I believe there is some question that he has got a history of psychiatric issues as well, even had an episode during his stay 2 days ago where he acted or seemed to be unresponsive but would resist any action of the spouse and that resolved. There was a note with a mention of some known osteophytes in the cervical neck, which could be causing some of this weakness that he is complaining about. During his stay, he complained of some dysphagia, so Gastroenterology saw him. He had 2 different barium swallows, one modified and one regular. The impression showed shallow penetration when ingesting thin liquids but no aspiration, it showed moderate presbyesophagus, moderate hang up of clearance of the esophagus when the patient is semirecumbent. On the modified one, significant bulky anterior degenerative osteophyte formation throughout the cervical spine impinging on the posterior pharyngeal wall. There is no aspiration or penetration. So underwent EGD, there is no esophageal stricture, although, he is reporting a history of having it with dilatation, some distal esophageal biopsies were obtained during the EGD that performed today to rule out Hernandez's esophagus, also of the mid esophageal biopsy to rule out eosinophilic esophagitis, did have some mild gastritis in the stomach, and some random gastric biopsies to rule out H. pylori. He will go home on his proton pump inhibitor, diabetic diet, and he will need to follow up with his crossband layer in about 2-4 weeks. DISCHARGE VITAL SIGNS: Temperature 98.1, heart rate 58, respiratory rate 15, blood pressure 136/71, O2 saturation 99% on room air. DISCHARGE LAB DATA: On 04/19/2019, white blood cell count 5000, hemoglobin 14, hematocrit 40, platelet count 137. BMP same day: Sodium 141, potassium 3.8, BUN 12, creatinine is 1.2, glucose 102, calcium 8.2. Had a CK level drawn on that date was 64. Hemoglobin A1c for him was 6. PERTINENT IMAGING: Head CT, brain MRI, brain MRA, all negative for acute findings. Chest x-ray also negative. Carotid ultrasound 0-39% bilaterally, and then he had the barium swallow, which showed the moderate presbyesophagus. DISCHARGE MEDICATIONS: 1. Flomax 0.4 mg p.o. nightly. 2. Flonase 2 sprays nasally at bedtime. 3. Omeprazole 40 mg p.o. nightly. 4. Aspirin 81 mg p.o. nightly. 5. Atorvastatin calcium 80 mg p.o. nightly. 6. Tylenol 650 1 tablet p.o. t.i.d. p.r.n. 7. Neurontin 600 mg p.o. t.i.d. p.r.n. DISCHARGE DIET: Diabetic. DISCHARGE ACTIVITY: As tolerated. DISCHARGE FOLLOWUP: Dr. Payton, Dr. Kelly, Dr. Claudio. DISCHARGE INSTRUCTIONS: Make appointment with Orthopedic Surgery to discuss cervical spine osteophytes, which may be causing pain. DISCHARGE DISPOSITION: Short-term nursing facility. It actually looks like it is going to be to [facility]. Dictated by IRINA Lebron for Uche Doll MD cc: IRINA Lebron III, MD Malcolm R. Hendricks, MD Michael Kelso, MD Agree with the above. the following is my own face to face assessment. Patient with odd episode of left sided weakness. workup with no clear etiology but neuro recommending meclizine if symptoms fail to continue improving. dysphagia workup with no clear aspiration or stenosis, but they did have some trouble with placing the scope, possibly because of cervical osteophytes which they suggest outpatient orthopedic eval for. also performed biopsies for possible hernandez's which are pending at this time. strength appears pretty full on exam but going to rehab because of some difficulty with ambulation. MTDD
[2019-04-20 16:00] VITALS: BP 136/85
== END 2019-04-20 17:11 | DRG 552 ==
LOC: SUPCPDRO → ED 16:32 → SUATTDRO 21:57 → 4N 21:57
PROVIDERS: ATTEND Internal Medicine
CPT/HCPCS: 70450; 70544; 70553; 71010; 71045; 74230; 74246; 80048; 80053; 80061; 81001; 82550; 82948; 83036; 83721; 84443; 84484; 85025; 85610; 85730; 88305; 88312; 88313; 92611; 93005; 93306; 93880; 94761; 96360; 97110; 97161; 97166; 97530; 97535; 99285; A9270; A9579; C8929; J1650; J2405; J7030; Q9957; XXXXX